=== PATIENT | female | born 1995 | race Caucasian/White ===

== ENCOUNTER 2019-08-20 09:13 | Emergency (ER) | payer OTHER ==
[~2019-08-20] VITALS: Ht 152.4 cm; Wt 69.5 kg
[2019-08-20] MEDS ORDERED: prenatal vit (09:21)
[2019-08-20] MEDS ORDERED: ALBUTEROL (09:21)
[2019-08-20 10:13] LABS: BASO % 0.4 % (0.0-1.0); EOS # 0.1 10^3/uL (0.0-0.5); EOS % 1.7 % (0.0-3.0); HEMATOCRIT 40.1 % (36.0-47.0); HEMOGLOBIN 13.2 g/dl (12.0-15.5); LYMPH # 2.3 10^3/uL (1.5-5.0); LYMPH % 27.7 % (24.0-44.0); MEAN CORPUSCULAR HEMOGLOBIN 29.1 pg (27.0-33.0); MEAN CORPUSCULAR HGB CONC 32.9 g/dl (32.0-36.5); MEAN CORPUSCULAR VOLUME 88.3 fl (80.0-96.0); MONO # 0.6 10^3/uL (0.0-0.8); MONO % 6.9 % (0.0-5.0); NEUTROPHILS # 5.3 10^3/uL (1.5-8.5); NEUTROPHILS % 62.9 % (36.0-66.0); PLATELET COUNT, AUTOMATED 229 10^3/uL (150-450); RED BLOOD COUNT 4.54 10^6/uL (4.00-5.40); WHITE BLOOD COUNT 8.4 10^3/uL (4.0-10.0)
--- NOTE | 2019-08-20 10:44 | REP ---
Clinical: Vaginal bleeding for dating and viability. Technique: Transabdominal and transvaginal first trimester obstetrical ultrasound with color Doppler evaluation. Findings: Heterogeneous enlarged uterus measures 10.0 x 6.2 x 6.1 cm. An demonstrates decidual reaction with gestational sac including yolk sac and small pole. Mean sac diameter corresponds to 6 weeks 1 day gestational age. No heart activity is identifiable. The bilateral maternal ovaries are normal in appearance and vascularity without torsion and demonstrates a right corpus luteum cyst. Impression: 1. Intrauterine at 6 weeks 1 day gestational age. No cardiac activity is identifiable. Differential diagnosis includes early as well as early spontaneous . Correlation with serial HCG levels and repeat ultrasound may be warranted. Electronically Signed by Esteban Segura MD 08/20/2019 10:35 A
[2019-08-20 10:47] LABS: BLOOD UREA NITROGEN 12 MG/DL (7-18); CALCIUM LEVEL 9.4 MG/DL (8.5-10.1); CARBON DIOXIDE LEVEL 27 MEQ/L (21-32); CHLORIDE LEVEL 104 MEQ/L (98-107); CREATININE FOR GFR 0.71 MG/DL (0.55-1.30); GLOMERULAR FILTRATION RATE > 60.0 (>60); GLUCOSE, FASTING 102 MG/DL (70-100); HCG, SERUM QUANTITATIVE 3456 MIU/ML; POTASSIUM SERUM 4.1 MEQ/L (3.5-5.1); SODIUM LEVEL 137 MEQ/L (136-145)
[2019-08-20 13:20] VITALS: BP 125/70
[2019-08-20 13:26] LABS: CHLAMYDIA DNA AMPLIFICATION NEGATIVE (NEGATIVE); GC DNA AMPLIFICATION NEGATIVE (NEGATIVE)
== END 2019-08-20 13:21 | disposition home or self-care (01) ==
LOC: M ED 09:13
DX: O20.0 Threatened abortion (principal); O99.511 Diseases of the respiratory system complicating pregnancy, first trimester; J45.909 Unspecified asthma, uncomplicated; Z3A.01 Less than 8 weeks gestation of pregnancy